=== PATIENT | female | born 1930 | race Caucasian/White ===

== ENCOUNTER 2018-01-26 17:44 | Emergency (ER) | payer MEDICARE ==
[2018-01-26] MEDS ORDERED: HYDROcodone/Acetaminophen 5/325 mg Tablet ONE (18:32)
[2018-01-26] MEDS ORDERED: Ondansetron ODT 4 MG TAB ONE (18:34)
--- NOTE | 2018-01-26 19:17 | RAD ---
LEFT SHOULDER THREE VIEWS: 01/26/18 HISTORY: Shoulder injury. There is a left humeral neck and greater tuberosity fracture. Bones are demineralized. IMPRESSION: Humeral neck and greater tuberosity fracture essentially nondisplaced. POS: [facility]
--- NOTE | 2018-01-26 19:18 | RAD ---
TWO VIEWS OF THE LEFT HUMERUS: 01/26/18 COMPARISON: None. HISTORY: Left humerus pain after injury. FINDINGS: Two views of the left humerus shows a comminuted fracture of the proximal aspect of the humerus. No d islocation is seen. Surrounding soft tissue swelling is present. IMPRESSION: Comminuted proximal left humeral fracture. POS: [facility]
== END 2018-01-26 18:55 | disposition home or self-care (01) ==
LOC: MADERS 17:44
DX: S42.202A Unspecified fracture of upper end of left humerus, initial encounter for closed fracture (principal); I48.91 Unspecified atrial fibrillation; E03.9 Hypothyroidism, unspecified; I10 Essential (primary) hypertension; F41.9 Anxiety disorder, unspecified; I25.10 Atherosclerotic heart disease of native coronary artery without angina pectoris; Z79.899 Other long term (current) drug therapy; W19.XXXA Unspecified fall, initial encounter
CPT/HCPCS: Q0162

== ENCOUNTER 2019-03-10 12:47 | Emergency (ER) | payer MEDICARE ==
[~2019-03-10 12:47] MED LIST: Sodium Chloride Irrig Solution 250 ML BOT ONE
[2019-03-10] MEDS ORDERED: HYDROcodone/Acetaminophen 10/325 mg Tablet ONE (13:06)
[2019-03-10] MEDS ORDERED: Lidocaine 1% w/Epinephrine 1:100K 20 ML VIAL ONE (13:27)
[2019-03-10] MEDS ORDERED: Fentanyl 100 MCG/2 ML VIAL ONE (14:09)
--- NOTE | 2019-03-10 14:14 | RAD ---
RIGHT SHOULDER TWO VIEWS: HISTORY: Right shoulder pain after fall. FINDINGS: Two views of the right shoulder show a comminuted fracture of the proximal diaphysis of the humerus. No dislocation of the humeral head is seen. The fracture is spiral in appearance. IMPRESSION: Spiral fracture of the proximal diaphysis of the right humerus. POS: [facility]
--- NOTE | 2019-03-10 14:16 | RAD ---
RIGHT FOREARM TWO VIEWS: HISTORY: Injury to the right forearm after a fall with pain. FINDINGS: Two views of the right forearm show no evidence of acute fracture or dislocation. No degenerative ch anges are seen. Mild soft tissue swelling is present. IMPRESSION: No evidence of acute osseous abnormality. POS: [facility]
--- NOTE | 2019-03-10 14:48 | RAD ---
SINGLE VIEW CHEST: HISTORY: Preoperative radiograph. COMPARISON: 10/31/2011 FINDINGS: A single view of the chest shows a normal sized cardiomediastinal silhouette. The patient has a pace maker with leads in the right atrium and ventricle. There is no evidence of consolidation, mass, or pleural effusion. There is an acute right humerus fracture. There appears to be a remote fracture o f the left proximal humerus. IMPRESSION: 1. No evidence of acute cardiopulmonary disease. 2. Right proximal humerus fracture. POS: [facility]
[2019-03-10 14:55] LABS: #Basophils 0.1 thou/uL (0.0-0.2); #Lymphocytes 0.8 thou/uL (1.20-3.40); #Monocytes 0.5 thou/uL (0.11-0.59); #Neutrophils 12.1 thou/uL (1.40-6.50); %Basophils 0.6 % (0.0-1.0); %Lymphocytes 5.6 % (21.0-51.0); %Monocytes 3.5 % (0.0-10.0); %Neutrophils 90.3 % (42.0-75.0); Hemoglobin 12.8 g/dL (12.0-16.0); Mean Corpuscular HGB CONC 32.1 g/dL (32.0-36.0); Mean Corpuscular Hemoglobin 30.4 pg (27.0-31.0); Mean Corpuscular Volume 94.6 fL (78.0-98.0); Mean Platelet Volume 7.5 fL (7.4-10.4); Platelet Count 196 thou/uL (130-400); RBC Distribution Width 12.9 % (11.5-14.5); White Blood Cell (WBC) Count 13.4 thou/uL (4.8-10.8)
[2019-03-10 15:11] LABS: Anion Gap 16 mmol/L (10-20); BUN (Urea Nitrogen) 15 mg/dL (9.8-20.1); Calc. Creatinine Clearance 0 mL/min (70-130); Calcium 8.8 mg/dL (7.8-10.44); Carbon Dioxide 23 mmol/L (23-31); Chloride 104 mmol/L (98-107); Estimated GFR-MDRD 62; Glucose 106 mg/dL (83-110); Potassium 5.4 mmol/L (3.5-5.1); Sodium 138 mmol/L (136-145)
== END 2019-03-10 16:20 | disposition short-term general hospital (02) ==
LOC: MADERS 12:47
DX: S42.201A Unspecified fracture of upper end of right humerus, initial encounter for closed fracture (principal); S51.811A Laceration without foreign body of right forearm, initial encounter; I25.10 Atherosclerotic heart disease of native coronary artery without angina pectoris; I48.91 Unspecified atrial fibrillation; E03.9 Hypothyroidism, unspecified; I10 Essential (primary) hypertension; F03.90 Unspecified dementia, unspecified severity, without behavioral disturbance, psychotic disturbance, mood disturbance, and anxiety; F41.9 Anxiety disorder, unspecified; Z79.01 Long term (current) use of anticoagulants; Z79.899 Other long term (current) drug therapy; W19.XXXA Unspecified fall, initial encounter
CPT/HCPCS: 71045; 80048; 85025; 93005; 96374; J2001; J3010